=== PATIENT | male | born 1945 | race Hispanic/Latino ===

== ENCOUNTER 2017-10-04 17:42 | Inpatient (IN) | payer MEDICARE ==
[~2017-10-04] VITALS: Ht 167.6 cm; Wt 79.6 kg
[2017-10-04 18:13] LABS: BASOPHILS % (AUTO) 0.2 % (0.0-5.0); EOSINOPHILS % (AUTO) 0.1 % (0.0-8.0); HEMATOCRIT 45.8 % (42-54); LYMPHOCYTES % (AUTO) 5.6 % (21.0-51.0); MEAN CORPUSCULAR HEMOGLOBIN 29.6 pg (27.0-33.0); MEAN CORPUSCULAR HGB CONC 34.5 g/dL (32.0-36.0); MEAN CORPUSCULAR VOLUME 85.7 fL (79-99); MONOCYTES % (AUTO) 4.2 % (3.0-13.0); NEUTROPHILS % (AUTO) 89.9 % (40.0-77.0); NUCLEATED RED BLOOD CELLS 0.2 % (0.0-0.19); PLATELET COUNT (AUTO) 212 K/uL (130-400); RED BLOOD CELL COUNT(AUTO) 5.34 MIL/uL (4.50-6.20); RED CELL DISTRIBUTION WIDTH 13.3 % (11.0-15.5); WHITE BLOOD COUNT (AUTO) 22.4 K/uL (4.8-10.8)
[2017-10-04] MEDS ORDERED: ONDANSETRON HCL 4 MG/2 ML VIAL ONE (18:18)
[2017-10-04] MEDS ORDERED: SODIUM CHLORIDE 0.9% 1000ML 1,000 ML IV ONE (18:18)
[2017-10-04] MEDS ORDERED: FAMOTIDINE/PF 20 MG/2 ML VIAL IV ONE (18:19)
[2017-10-04 18:24] LABS: CREATININE 1.7 mg/dL (0.5-1.5); POTASSIUM 3.4 mmol/L (3.5-5.1)
[2017-10-04 18:25] LABS: INR 1.09 (0.85-1.15); PARTIAL THROMBOPLASTIN TIME 26.1 SEC (26.3-35.5); PROTHROMBIN TIME 11.4 SEC (9.6-11.6)
[2017-10-04 18:49] LABS: ALBUMIN 3.8 g/dL (3.5-5.0); BILIRUBIN,TOTAL 1.1 mg/dL (0.2-1.0); CREATINE KINASE MB 0.9 ng/mL (0.5-3.6); TOTAL PROTEIN, SERUM 7.8 g/dL (6.0-8.3)
[2017-10-04] MEDS ORDERED: MORPHINE SULFATE 2 MG/ML 1ML SYG ONE (20:06)
[2017-10-04 22:35] VITALS: BP 163/83
[2017-10-04] MEDS: SODIUM CHLORIDE 0.9% 1000ML 1,000 ML IV SCH (23:37)
[2017-10-05] MEDS ORDERED: ONDANSETRON HCL 4 MG/2 ML VIAL IVP PRN (01:30)
[2017-10-05] MEDS ORDERED: MORPHINE SULFATE 2 MG/ML 1ML SYG ONE (01:42)
[2017-10-05] MEDS ORDERED: ONDANSETRON HCL 4 MG/2 ML VIAL ONE (01:43)
[2017-10-05] MEDS: MORPHINE SULFATE 2 MG/ML 1ML SYG IVP PRN (01:49)
[2017-10-05 03:00] VITALS: BP 145/65
[2017-10-05] MEDS ORDERED: SODIUM CHLORIDE 0.9% 1000ML 1,000 ML IV SCH (03:18)
[2017-10-05] MEDS ORDERED: POTASSIUM CHLORIDE 10% ELIXIR 20 MEQ/15 ML UDCUP PO PRN (03:30)
[2017-10-05] MEDS ORDERED: ACETAMINOPHEN 325 MG TAB PO PRN (03:30)
[2017-10-05] MEDS ORDERED: CEFTRIAXONE 1GM/D5W 50ML 50 ML IV SCH (03:30)
[2017-10-05] MEDS: SODIUM CHLORIDE 0.9% 1000ML 1,000 ML IV SCH ×3 (06:00→20:31)
[2017-10-05] MEDS ORDERED: FLU VACC QS2017-18 36MOS UP/PF 60 MCG/0.5 ML ML IM ONE (06:30)
[2017-10-05] MEDS ORDERED: PNEUMOCOCCAL VACCINE POLYVALENT 0.5 ML/VIAL [PPV] IM ONE (06:30)
[2017-10-05 07:33] LABS: HEMATOCRIT 41.4 % (42-54); MEAN CORPUSCULAR HEMOGLOBIN 29.3 pg (27.0-33.0); MEAN CORPUSCULAR HGB CONC 33.8 g/dL (32.0-36.0); MEAN CORPUSCULAR VOLUME 86.8 fL (79-99); PLATELET COUNT (AUTO) 174 K/uL (130-400); RED BLOOD CELL COUNT(AUTO) 4.77 MIL/uL (4.50-6.20); RED CELL DISTRIBUTION WIDTH 13.3 % (11.0-15.5); WHITE BLOOD COUNT (AUTO) 20.9 K/uL (4.8-10.8)
[2017-10-05] MEDS: CEFTRIAXONE SODIUM 1 GM IVP SCH (07:47)
[2017-10-05 08:00] VITALS: BP 152/68
[2017-10-05 08:07] LABS: BAND NEUTROPHILS % (MANUAL) 8 % (0-2); LYMPHOCYTES % (MANUAL) 1 % (22-44); MAN.DIFF COMMENT-IMPRESSION MANUAL DIFFERENTIAL; MONOCYTES % (MANUAL) 2 % (2-9); PLATELET MORPHOLOGY COMMENT ADEQUATE; REACTIVE LYMPHOCYTES 3 % (0-0); SEGMENTED NEUTROPHILS % 86 % (40-70)
[2017-10-05 08:58] LABS: BILIRUBIN,TOTAL 1.4 mg/dL (0.2-1.0); CREATININE 1.4 mg/dL (0.5-1.5); POTASSIUM 3.3 mmol/L (3.5-5.1); TOTAL PROTEIN, SERUM 6.8 g/dL (6.0-8.3)
[2017-10-05] MEDS: FAMOTIDINE/PF 20 MG/2 ML VIAL IV SCH (09:37)
[2017-10-05 11:20] VITALS: BP 160/75
[2017-10-05 16:00] VITALS: BP 144/75
[2017-10-05] MEDS ORDERED: HYDR-2534 PO (16:57)
[2017-10-05 19:00] VITALS: BP 172/79
[2017-10-05 23:00] VITALS: BP 167/75
[2017-10-06 03:00] VITALS: BP 189/80
[2017-10-06] MEDS: CEFTRIAXONE SODIUM 1 GM IVP SCH (03:37)
[2017-10-06] MEDS: SODIUM CHLORIDE 0.9% 1000ML 1,000 ML IV SCH ×3 (03:41→22:36)
[2017-10-06 07:00] VITALS: BP 178/87
[2017-10-06] MEDS: FAMOTIDINE/PF 20 MG/2 ML VIAL IV SCH (09:39)
[2017-10-06 11:00] VITALS: BP 137/63
[2017-10-06] MEDS: MORPHINE SULFATE 2 MG/ML 1ML SYG IVP PRN ×2 (12:19→18:04)
[2017-10-06 16:00] VITALS: BP 175/69
[2017-10-06 19:00] VITALS: BP 185/79
[2017-10-06 23:00] VITALS: BP 193/75
[2017-10-07] MEDS: MORPHINE SULFATE 2 MG/ML 1ML SYG IVP PRN ×2 (00:53→17:50)
[2017-10-07 03:00] VITALS: BP 175/76
[2017-10-07] MEDS: CEFTRIAXONE SODIUM 1 GM IVP SCH (04:17)
[2017-10-07 04:43] LABS: HEMATOCRIT 37.4 % (42-54); MEAN CORPUSCULAR HEMOGLOBIN 29.4 pg (27.0-33.0); MEAN CORPUSCULAR HGB CONC 34.1 g/dL (32.0-36.0); MEAN CORPUSCULAR VOLUME 86.3 fL (79-99); PLATELET COUNT (AUTO) 172 K/uL (130-400); RED BLOOD CELL COUNT(AUTO) 4.33 MIL/uL (4.50-6.20); RED CELL DISTRIBUTION WIDTH 13.1 % (11.0-15.5); WHITE BLOOD COUNT (AUTO) 15.6 K/uL (4.8-10.8)
[2017-10-07 04:57] LABS: ALBUMIN 2.5 g/dL (3.5-5.0); BILIRUBIN,DIRECT 0.3 mg/dL (0.0-0.3); BILIRUBIN,TOTAL 0.9 mg/dL (0.2-1.0); CREATININE 0.9 mg/dL (0.5-1.5); MAGNESIUM 1.8 mg/dL (1.80-2.40); TOTAL PROTEIN, SERUM 6.4 g/dL (6.0-8.3)
[2017-10-07 05:07] LABS: BAND NEUTROPHILS % (MANUAL) 4 % (0-2); LYMPHOCYTES % (MANUAL) 2 % (22-44); MAN.DIFF COMMENT-IMPRESSION MANUAL DIFFERENTIAL; MONOCYTES % (MANUAL) 6 % (2-9); PLATELET MORPHOLOGY COMMENT ADEQUATE; SEGMENTED NEUTROPHILS % 88 % (40-70)
[2017-10-07 05:08] LABS: POTASSIUM 2.9 mmol/L (3.5-5.1)
[2017-10-07] MEDS: SODIUM CHLORIDE 0.9% 1000ML 1,000 ML IV SCH ×2 (05:49→14:54)
[2017-10-07] MEDS: POTASSIUM CHLORIDE 20 MEQ ERTAB PO PRN ×4 (06:11→21:37)
[2017-10-07] MEDS: LIDOCAINE HCL-MPF 1% 2ML VIAL IVP PRN (06:11)
[2017-10-07] MEDS: POTASSIUM CHLORIDE 20MEQ/100ML 100 ML IV PRN (06:12)
[2017-10-07 08:00] VITALS: BP 176/79
[2017-10-07] MEDS: FAMOTIDINE/PF 20 MG/2 ML VIAL IV SCH (09:15)
[2017-10-07 12:00] VITALS: BP 194/82
[2017-10-07 16:00] VITALS: BP 191/88
[2017-10-07] MEDS: HYDRALAZINE HCL 20 MG/ML VIAL IV PRN (16:03)
[2017-10-07 19:55] VITALS: BP 186/87
[2017-10-08] VITALS (8 sets, daily range): BP systolic 145–198; BP diastolic 72–97
[2017-10-08 03:36] LABS: HEMATOCRIT 39.6 % (42-54); MEAN CORPUSCULAR HEMOGLOBIN 29.3 pg (27.0-33.0); MEAN CORPUSCULAR HGB CONC 34.4 g/dL (32.0-36.0); MEAN CORPUSCULAR VOLUME 85.2 fL (79-99); PLATELET COUNT (AUTO) 208 K/uL (130-400); RED BLOOD CELL COUNT(AUTO) 4.65 MIL/uL (4.50-6.20); RED CELL DISTRIBUTION WIDTH 13.1 % (11.0-15.5); WHITE BLOOD COUNT (AUTO) 15.5 K/uL (4.8-10.8)
[2017-10-08 03:45] LABS: MAGNESIUM 1.6 mg/dL (1.80-2.40); POTASSIUM 3.3 mmol/L (3.5-5.1)
[2017-10-08] MEDS: CEFTRIAXONE SODIUM 1 GM IVP SCH (04:12)
[2017-10-08] MEDS: HYDRALAZINE HCL 20 MG/ML VIAL IV PRN ×2 (04:12→11:22)
[2017-10-08] MEDS: SODIUM CHLORIDE 0.9% 1000ML 1,000 ML IV SCH (04:12)
[2017-10-08] MEDS: MORPHINE SULFATE 2 MG/ML 1ML SYG IVP PRN (04:13)
[2017-10-08 06:05] LABS: BAND NEUTROPHILS % (MANUAL) 9 % (0-2); BASOPHILS % (MANUAL) 1 % (0-2); EOSINOPHILS % (MANUAL) 2 % (1-6); LYMPHOCYTES % (MANUAL) 4 % (22-44); MAN.DIFF COMMENT-IMPRESSION MANUAL DIFFERENTIAL; MONOCYTES % (MANUAL) 2 % (2-9); SEGMENTED NEUTROPHILS % 82 % (40-70)
[2017-10-08 06:06] LABS: PLATELET MORPHOLOGY COMMENT ADEQUATE
[2017-10-08] MEDS: FAMOTIDINE/PF 20 MG/2 ML VIAL IV SCH (08:46)
[2017-10-08] MEDS: POTASSIUM CHLORIDE 20 MEQ ERTAB PO PRN ×2 (08:47→12:36)
[2017-10-08] MEDS ORDERED: MAGNESIUM 2GM PREMIX 50ML 50 ML IV NR (10:30)
[2017-10-08] MEDS: LISINOPRIL 10 MG TABLET PO SCH (11:21)
[2017-10-08] MEDS ORDERED: IOPAMIDOL-370 75 ML VIAL IV ONE (14:05)
[2017-10-09] MEDS: HYDRALAZINE HCL 20 MG/ML VIAL IV PRN (00:46)
[2017-10-09 03:15] VITALS: BP 142/69
[2017-10-09] MEDS: CEFTRIAXONE SODIUM 1 GM IVP SCH (04:00)
[2017-10-09 04:10] LABS: HEMATOCRIT 37.5 % (42-54); MEAN CORPUSCULAR HEMOGLOBIN 29.5 pg (27.0-33.0); MEAN CORPUSCULAR HGB CONC 34.6 g/dL (32.0-36.0); MEAN CORPUSCULAR VOLUME 85.4 fL (79-99); PLATELET COUNT (AUTO) 225 K/uL (130-400); RED BLOOD CELL COUNT(AUTO) 4.39 MIL/uL (4.50-6.20); RED CELL DISTRIBUTION WIDTH 13.1 % (11.0-15.5); WHITE BLOOD COUNT (AUTO) 16.5 K/uL (4.8-10.8)
[2017-10-09 04:15] LABS: CREATININE 1.5 mg/dL (0.5-1.5); POTASSIUM 3.5 mmol/L (3.5-5.1)
[2017-10-09 05:54] LABS: BAND NEUTROPHILS % (MANUAL) 13 % (0-2); EOSINOPHILS % (MANUAL) 1 % (1-6); LYMPHOCYTES % (MANUAL) 5 % (22-44); MAN.DIFF COMMENT-IMPRESSION MANUAL DIFFERENTIAL; MONOCYTES % (MANUAL) 6 % (2-9); SEGMENTED NEUTROPHILS % 75 % (40-70)
[2017-10-09 07:00] VITALS: BP 157/70
[2017-10-09] MEDS: POTASSIUM CHLORIDE 20 MEQ ERTAB PO PRN ×2 (08:18→12:08)
[2017-10-09] MEDS: LISINOPRIL 10 MG TABLET PO SCH (08:18)
[2017-10-09] MEDS: FAMOTIDINE/PF 20 MG/2 ML VIAL IV SCH (08:19)
[2017-10-09 11:00] VITALS: BP 128/56
[2017-10-09] MEDS: TAMSULOSIN HCL 0.4 MG CAP.ER.24H PO SCH (12:08)
[2017-10-09 16:00] VITALS: BP 140/59
[2017-10-09 19:21] VITALS: BP 150/69
[2017-10-09 23:18] VITALS: BP 143/69
[2017-10-10] VITALS (7 sets, daily range): BP systolic 88–158; BP diastolic 47–87
[2017-10-10] MEDS: CEFTRIAXONE SODIUM 1 GM IVP SCH (03:06)
[2017-10-10 04:49] LABS: ALBUMIN 2.2 g/dL (3.5-5.0); BILIRUBIN,DIRECT 0.2 mg/dL (0.0-0.3); BILIRUBIN,TOTAL 0.6 mg/dL (0.2-1.0); CREATININE 1.2 mg/dL (0.5-1.5); POTASSIUM 3.4 mmol/L (3.5-5.1); TOTAL PROTEIN, SERUM 6.1 g/dL (6.0-8.3)
[2017-10-10] MEDS: POTASSIUM CHLORIDE 20MEQ/100ML 100 ML IV PRN ×2 (05:12→16:36)
[2017-10-10] MEDS: LIDOCAINE HCL-MPF 1% 2ML VIAL IVP PRN ×2 (05:13→16:35)
[2017-10-10 08:14] LABS: BASOPHILS % (AUTO) 0.5 % (0.0-5.0); EOSINOPHILS % (AUTO) 1.1 % (0.0-8.0); HEMATOCRIT 36.9 % (42-54); LYMPHOCYTES % (AUTO) 9.4 % (21.0-51.0); MEAN CORPUSCULAR HGB CONC 33.8 g/dL (32.0-36.0); MEAN CORPUSCULAR VOLUME 85.8 fL (79-99); MONOCYTES % (AUTO) 9.4 % (3.0-13.0); NEUTROPHILS % (AUTO) 79.6 % (40.0-77.0); PLATELET COUNT (AUTO) 217 K/uL (130-400); RED CELL DISTRIBUTION WIDTH 13.2 % (11.0-15.5); WHITE BLOOD COUNT (AUTO) 14.4 K/uL (4.8-10.8)
[2017-10-10 08:23] LABS: CREATININE 1.1 mg/dL (0.5-1.5); POTASSIUM 3.8 mmol/L (3.5-5.1)
[2017-10-10] MEDS: TAMSULOSIN HCL 0.4 MG CAP.ER.24H PO SCH (10:27)
[2017-10-10] MEDS: FAMOTIDINE/PF 20 MG/2 ML VIAL IV SCH (10:27)
[2017-10-10] MEDS: LISINOPRIL 10 MG TABLET PO SCH (10:27)
[2017-10-10] MEDS: POTASSIUM CHLORIDE 20 MEQ ERTAB PO PRN (19:55)
[2017-10-11 03:09] VITALS: BP 152/81
[2017-10-11] MEDS: CEFTRIAXONE SODIUM 1 GM IVP SCH (03:09)
[2017-10-11 06:49] LABS: BASOPHILS % (AUTO) 0.6 % (0.0-5.0); EOSINOPHILS % (AUTO) 1.3 % (0.0-8.0); HEMATOCRIT 39.5 % (42-54); MEAN CORPUSCULAR HEMOGLOBIN 29.2 pg (27.0-33.0); MEAN CORPUSCULAR HGB CONC 33.7 g/dL (32.0-36.0); MEAN CORPUSCULAR VOLUME 86.6 fL (79-99); MONOCYTES % (AUTO) 9.4 % (3.0-13.0); NEUTROPHILS % (AUTO) 79.7 % (40.0-77.0); PLATELET COUNT (AUTO) 285 K/uL (130-400); RED BLOOD CELL COUNT(AUTO) 4.56 MIL/uL (4.50-6.20); RED CELL DISTRIBUTION WIDTH 13.3 % (11.0-15.5); WHITE BLOOD COUNT (AUTO) 14.1 K/uL (4.8-10.8)
[2017-10-11 06:53] LABS: CREATININE 1.3 mg/dL (0.5-1.5); POTASSIUM 3.7 mmol/L (3.5-5.1)
[2017-10-11 07:00] VITALS: BP 128/58
[2017-10-11] MEDS: TAMSULOSIN HCL 0.4 MG CAP.ER.24H PO SCH (10:32)
[2017-10-11] MEDS: POTASSIUM CHLORIDE 20 MEQ ERTAB PO PRN ×2 (10:32→12:27)
[2017-10-11] MEDS: LISINOPRIL 10 MG TABLET PO SCH (10:32)
[2017-10-11] MEDS: FAMOTIDINE/PF 20 MG/2 ML VIAL IV SCH (10:32)
[2017-10-11 11:00] VITALS: BP 128/60
[2017-10-11] MEDS ORDERED: LISI10TA7 PO (12:04)
[2017-10-11] MEDS ORDERED: TAMS-1 PO (12:04)
[2017-10-11] MEDS ORDERED: AMOX-429 PO (12:04)
[2017-10-11 16:00] VITALS: BP 141/69
== END 2017-10-11 19:34 | disposition home or self-care (01) | DRG 439 ==
LOC: EDH 17:42 → EDHIP 21:34 → 3CH 21:54
PROVIDERS: ADMIT Family Medicine; ATTEND Family Medicine
PROC: 3E0234Z Introduction of Serum, Toxoid and Vaccine into Muscle, Percutaneous Approach (ICD-10-PCS; principal; 2017-10-05)
PROC: 3E0234Z Introduction of Serum, Toxoid and Vaccine into Muscle, Percutaneous Approach (ICD-10-PCS; 2017-10-05)
DX: K85.90 Acute pancreatitis without necrosis or infection, unspecified (principal); N17.9 Acute kidney failure, unspecified; R56.9 Unspecified convulsions; R65.10 Systemic inflammatory response syndrome (SIRS) of non-infectious origin without acute organ dysfunction; E83.42 Hypomagnesemia; K57.90 Diverticulosis of intestine, part unspecified, without perforation or abscess without bleeding; E87.6 Hypokalemia; I10 Essential (primary) hypertension; K80.20 Calculus of gallbladder without cholecystitis without obstruction; K85.80 Other acute pancreatitis without necrosis or infection; N40.1 Benign prostatic hyperplasia with lower urinary tract symptoms; R33.8 Other retention of urine; D72.829 Elevated white blood cell count, unspecified; Z23 Encounter for immunization
CPT/HCPCS: 36415; 70450; 70551; 71046; 74160; 74176; 76705; 80048; 80053; 80061; 80076; 82150; 82550; 82553; 82948; 83690; 83735; 84132; 84484; 85025; 85610; 85730; 90732; 93005; A4218; G0008; G0009; J0360; J0696; J2405; J3475; J3480; J3490; J7030; Q2038; Q9967

== ENCOUNTER 2017-11-30 18:41 | Emergency (ER) | payer MEDICARE ==
[~2017-11-30 18:41] MED LIST: AMOX-429 PO; HYDR-2534 PO; LISI10TA7 PO; TAMS-1 PO
[2017-11-30 19:35] LABS: RAPID GROUP A STREP NEGATIVE (NEGATIVE)
[2017-11-30 19:47] LABS: BASOPHILS % (AUTO) 0.3 % (0.0-5.0); EOSINOPHILS % (AUTO) 2.3 % (0.0-8.0); HEMATOCRIT 38.4 % (42-54); LYMPHOCYTES % (AUTO) 19.8 % (21.0-51.0); MEAN CORPUSCULAR HEMOGLOBIN 29.4 pg (27.0-33.0); MEAN CORPUSCULAR HGB CONC 34.2 g/dL (32.0-36.0); MONOCYTES % (AUTO) 7.4 % (3.0-13.0); NEUTROPHILS % (AUTO) 70.2 % (40.0-77.0); PLATELET COUNT (AUTO) 157 K/uL (130-400); RED BLOOD CELL COUNT(AUTO) 4.47 MIL/uL (4.50-6.20); RED CELL DISTRIBUTION WIDTH 14.3 % (11.0-15.5); WHITE BLOOD COUNT (AUTO) 7.5 K/uL (4.8-10.8)
[2017-11-30] MEDS ORDERED: SODIUM CHLORIDE 0.9% 1000ML 1,000 ML IV ONE (19:59)
[2017-11-30] MEDS ORDERED: ACETAMINOPHEN 325 MG TAB ONE (19:59)
[2017-11-30] MEDS ORDERED: MORPHINE SULFATE 4 MG/1ML SYG ONE (20:00)
[2017-11-30 20:16] LABS: CREATININE 1.1 mg/dL (0.5-1.5); POTASSIUM 3.5 mmol/L (3.5-5.1)
[2017-11-30 20:20] LABS: ALBUMIN 3.9 g/dL (3.5-5.0); BILIRUBIN,TOTAL 0.7 mg/dL (0.2-1.0)
[2017-11-30 20:22] LABS: APPEARANCE,URINE Clear (CLEAR); BILIRUBIN,URINE Negative (NEGATIVE); COLOR,URINE Yellow (YELLOW); GLUCOSE, URINE (UA) Negative (NEGATIVE); KETONES,URINE 15 mg/dL (NEGATIVE); LEUKOCYTE ESTERASE ,URINE Large (NEGATIVE); NITRATE,URINE Negative (NEGATIVE); OCCULT BLOOD,URINE Small (NEGATIVE); PH,URINE 6.5 (5.0-8.0); PROTEIN,URINE Trace (NEGATIVE)
[2017-11-30 20:30] LABS: BACTERIA,URINE Rare /HPF (None Seen); SQUAMOUS EPITHELIAL CELL,UR 0-2 /HPF (0-2)
[2017-11-30] MEDS ORDERED: CEFTRIAXONE SODIUM 1 GM ONE (21:39)
[2017-11-30] MEDS ORDERED: SODIUM CHLORIDE 0.9% 50 ML IV ONE (21:40)
[2017-11-30] MEDS ORDERED: LABETALOL HCL 5 MG/ML 20ML VIAL IV ONE (22:19)
== END 2017-11-30 23:37 | disposition home or self-care (01) ==
LOC: EDH 18:41
DX: T83.091A Other mechanical complication of indwelling urethral catheter, initial encounter (principal); R33.9 Retention of urine, unspecified; N30.00 Acute cystitis without hematuria; I10 Essential (primary) hypertension; Z90.49 Acquired absence of other specified parts of digestive tract; Z87.891 Personal history of nicotine dependence
CPT/HCPCS: 36415; 51702; 71046; 80053; 81001; 82550; 83605; 83880; 84484 ×2; 85025; 87040 ×2; 87070; 87076; 87077; 87088; 87186 ×2; 87804 ×2; 87880; 93005 ×2; 96374; 96375; 99285; J0696; J2270; J3490; J7030; 96361